=== PATIENT | male | born 1990 | race Caucasian/White ===

== ENCOUNTER 2019-08-25 08:40 | Outpatient (CLI) | payer OTHER, SELFPAY ==
[2019-08-25 09:09] LABS: Basophils Absolute Auto 0.04 K/mm3 (0.00-0.10); Basophils Percent Auto 0.5 % (0.0-1.0); Eosinophils Absolute Auto 0.02 K/mm3 (0.02-0.50); Eosinophils Percent Auto 0.3 % (1.0-6.0); Hematocrit 46.4 % (40.0-54.0); Hemoglobin 16.7 g/dL (14.0-18.0); Immature Granulocyte Absolute 0.01 K/mm3 (0.00-0.00); Immature Granulocyte Percent A 0.1 % (0.0-0.0); Lymphocytes Absolute Auto 1.66 K/mm3 (1.10-4.50); Lymphocytes Percent Auto 22.6 % (18.0-42.0); Mean Corpuscular Hemoglobin 31.5 pg (27.0-31.0); Mean Corpuscular Volume 87.4 fL (78.0-102.0); Mean Platelet Volume 10.4 fl (8.7-11.0); Monocytes Absolute Auto 0.76 K/mm3 (0.10-0.90); Monocytes Percent Auto 10.3 % (2.0-11.0); Neutrophils Absolute Auto 4.9 K/mm3 (1.7-7.2); Neutrophils Percent Auto 66.2 % (50.0-70.0); Platelet Count Result 255 K/mm3 (150-420); Red Blood Count 5.31 M/mm3 (4.70-6.10); Red Cell Distribution Width 11.5 % (11.6-14.4); White Blood Count 7.4 K/mm3 (4.8-10.8)
[2019-08-25 09:10] LABS: Add Urine Microscopic? YES; Appearance Urine Clear (Clear); Bilirubin Urine Negative (Negative); Blood Urine Negative (Negative); Color Urine Yellow (Yellow); Glucose Urine UA 1+ (Negative); Ketones Urine Negative (Negative); Leukocyte Esterase Ur Negative (Negative); Nitrate Urine Negative (Negative); Protein Urine 1+ (Negative); Urobilinogen Urine 0.2 mg/dL (0.2-1.0); pH Urine 6.5 (5.0-8.0)
[2019-08-25 09:21] LABS: Bacteria Urine 1+ /hpf; Mucus Urine Moderate /lpf; RBC Urine 0-2 /hpf (0-2); Squamous Epithelial Cell Urine None seen /hpf (Few)
[2019-08-25 09:49] LABS: Alanine Aminotransferase 41 U/L (16-63); Albumin Level 4.7 g/dL (3.4-5.0); Alkaline Phosphatase 85 U/L (46-116); Anion Gap 15.7 mmol/L (7-16); Aspartate Amino Transferase 26 U/L (15-37); Bilirubin,Total 0.6 mg/dL (0.00-1.00); Blood Urea Nitrogen 16 mg/dL (7-18); Calcium 9.7 mg/dL (8.5-10.1); Carbon Dioxide 26 mmol/L (21-32); Chloride 101 mmol/L (98-108); Cholesterol 220 mg/dL (0-200); Estimated Glomerular Filt Rate > 60; Glucose 239 mg/dL (70-99); HDL Direct 31 mg/dL (40-60); LDL Cholesterol Calculated 135 mg/dL (<130); Osmolality Calculated 295 mOsm/kg (285-295); Potassium 4.7 mmol/L (3.5-5.1); Sodium 138 mmol/L (136-145); Total Protein 7.9 g/dL (6.4-8.2); Triglycerides 272 mg/dL (0-150)
== END 2019-08-25 08:41 | disposition home or self-care (01) ==
LOC: CHSLAB 08:45
PROVIDERS: PCP Internal Medicine; Visit Provider Internal Medicine
DX: E78.5 Hyperlipidemia, unspecified (principal); E11.9 Type 2 diabetes mellitus without complications; N17.9 Acute kidney failure, unspecified; F32.2 Major depressive disorder, single episode, severe without psychotic features; Z13.89 Encounter for screening for other disorder
CPT/HCPCS: 36415; 80053; 80061; 80307; 81001; 85025

== ENCOUNTER 2019-10-28 00:51 | Emergency (ER) | payer OTHER, SELFPAY ==
[2019-10-28] VITALS (9 sets, daily range): BP systolic 105–132; BP diastolic 57–78; PULSE 72–87; RESP 16–20; TEMP 36.6; O2SAT 95–99
--- NOTE | ~2019-10-28 | CT_ITS ---
EXAMINATION: CT brain wo con DATE: 10/28/2019 01:34 INDICATION: Suicidal ideation. Intoxication. TECHNIQUE: Computed tomography (CT) of the head was performed without intravenous contrast. The mA wa s adjusted according to patient size. Iterative reconstruction technique was employed. The dose-lengt h product was 681.00 mGy-cm. COMPARISON: None FINDINGS: There is no intracranial hemorrhage, acute infarction, or abnormal intracranial mass lesion . The ventricles are normal in size. There are fracture deformities of the nasal bones. The mastoid a ir cells are normal. The orbits are normal. There is mild mucosal thickening in the ethmoid and sphen oid sinuses. IMPRESSION: 1. Normal brain. Reviewed, dictated and finalized at location A. IMPRESSION: 1. Normal brain.
--- NOTE | 2019-10-28 01:06 | ECG_ITS ---
Measurements Intervals [place] Rate: 80 P: 5 NV: 224 QRS: 27 QRSD: 116 T: -23 QT: 398 QTc: 461 Interpretive Statements SINUS RHYTHM WITH FIRST DEGREE AV BLOCK MODERATE INTRAVENTRICULAR CONDUCTION DELAY ST ELEVATION IN ANT/LAT LEADS- CONSIDER PERICARDITIS, EARLY REPOLARIZATION BASELINE WANDER- II, III, AVF, V2 ABNORMAL ECG Electronically Signed On 10-28-2019 7:22:49 CDT by Oscar Conde D.O.
--- NOTE | 2019-10-28 01:06 | ED.PSYCH ---
HPI - Psych General Chief Complaint: Psychiatric Symptoms Stated Complaint: suicidal Time Seen by Provider: 10/28/19 01:06 Source: patient Mode of arrival: ambulatory Limitations: no limitations History of Present Illness HPI Narrative: 29-year-old man brought in to the emergency department by EMS after he was brought down from a water tower where he planned to commit suicide. Patient states that he is tired of it all and would have committed suicide but he wanted to talk to his family first. States that he drank alcohol as recently as 30 minutes ago and approximately dinnertime (6 or 7 hours ago) he took about 8 Klonopin. He denies seizure and recent head injury. MD complaint: suicidal ideation Onset (ago): hour(s) Duration: constant History of same: Yes Relieving factors: none Exacerbating factors: alcohol Context: recent alcohol abuse Associated psychiatric symptoms: depression and suicidal ideation Treatments prior to arrival: none If self harm: admits thoughts of self harm, has plan, has acted on plan and self-inflicted trauma Related Data Home Medications Medication Instructions Recorded Confirmed acamprosate 333 mg PO DAILY 10/28/19 10/28/19 atorvastatin 10 mg PO DAILY 10/28/19 10/28/19 buspirone 30 mg PO DAILY 10/28/19 10/28/19 clonazepam 1 mg PO DAILY 10/28/19 10/28/19 glyburide-metformin 1 tablet PO BID 10/28/19 10/28/19 metoprolol tartrate 100 mg PO DAILY 10/28/19 10/28/19 mirtazapine 30 mg PO HS 10/28/19 10/28/19 venlafaxine 150 mg PO DAILY 10/28/19 10/28/19 Allergies Allergy/AdvReac Type Severity Reaction Status Date / Time No Known Allergies Allergy Verified 10/28/19 01:16 Review of Systems Constitutional: Constitutional: Denies chills, Denies fever(s) and Denies weakness Eyes: Eyes: Denies change in vision and Denies photophobia ENT: Denies dysphagia, Denies nasal congestion and Denies sore throat Cardiovascular: Cardiovascular: Denies chest pain and Denies radiating jaw, neck or arm pain Respiratory: Respiratory: Denies cough, Denies dyspnea and Denies wheezing Gastrointestinal: Gastrointestinal: Denies abdominal pain, Denies diarrhea, Denies nausea and Denies vomiting Neurologic: Denies vertigo, Denies dizziness, Denies syncope and Reports headache(s) Psychiatric: Psychiatric: Reports as per HPI, Reports depression and Reports suicidal ideation Hematologic/Lymphatic: Hematologic/Lymphatic: Denies easy bleeding and Denies easy bruising Allergic/Immunologic: Allergic/Immunologic: Denies tongue swelling and Denies wheezing COUNTS INCLUDE 234 BEDS AT THE [facility] Past Medical History Medical History (Updated 10/28/19 @ 02:25 by John Mosquera MD) Depression Hypertension Suicidal ideation Social History Social History (Updated 10/28/19 @ 01:43 by John Mosquera MD) Smoking status: Current every day smoker Tobacco type: cigarettes Alcohol intake: current Substance use: former Substance use type: heroin and methamphetamine Living arrangements: with family Exam Const: General: healthy appearing, no acute distress and alert Orientation/consciousness: patient oriented x3 HENMT: Ears: external ears normal, TM's normal bilaterally and EAC's normal Mouth: Yes Normal oral and palatal mucosa present Throat: posterior oropharynx normal and uvula midline Eyes: Conjunctivae: conjunctivae normal Pupils: Equal, round and reactive pupils present EOM: EOMs intact bilaterally Resp: Effort & Inspection: normal respiratory effort and not labored Auscultation: clear to auscultation bilaterally, no rales, no rhonchi and no wheezes Cardio: Rate: regular rate Rhythm: regular rhythm Heart sounds: no murmurs GI: GI Palp: Yes Soft to palpation, No Tenderness to palpation present (GI), No Guarding due to palpation present (GI) and No Rigid due to palpation Skin: General skin exam: normal color, no jaundice and no pallor Rashes: no rashes Neuro: General: patient oriented x3, moves all extremities, no
[2019-10-28 01:49] LABS: Add Urine Microscopic? NO; Appearance Urine Clear (Clear); Bilirubin Urine Negative (Negative); Blood Urine Negative (Negative); Color Urine Yellow (Yellow); Glucose Urine UA Negative (Negative); Ketones Urine Negative (Negative); Leukocyte Esterase Ur Negative LEU/UL (Negative); Nitrate Urine Negative (Negative); Protein Urine Negative (Negative); Specific Grav Ur <= 1.005 (1.010-1.020); Urobilinogen Urine 0.2 mg/dL (0.2-1.0); pH Urine 5.5 (5.0-8.0)
[2019-10-28 01:51] LABS: Basophils Absolute Auto 0.04 K/mm3 (0.00-0.10); Basophils Percent Auto 0.5 % (0.0-1.0); Eosinophils Absolute Auto 0.08 K/mm3 (0.02-0.50); Hematocrit 47.5 % (40.0-54.0); Hemoglobin 16.5 g/dL (14.0-18.0); Immature Granulocyte Absolute 0.03 K/mm3 (0.00-0.00); Immature Granulocyte Percent A 0.4 % (0.0-0.0); Lymphocytes Percent Auto 35.8 % (18.0-42.0); Mean Corpuscular HGB Conc 34.7 g/dL (32.0-36.0); Mean Corpuscular Hemoglobin 29.7 pg (27.0-31.0); Mean Corpuscular Volume 85.6 fL (78.0-102.0); Mean Platelet Volume 10.3 fl (8.7-11.0); Monocytes Absolute Auto 0.79 K/mm3 (0.10-0.90); Monocytes Percent Auto 10.1 % (2.0-11.0); Neutrophils Absolute Auto 4.1 K/mm3 (1.7-7.2); Neutrophils Percent Auto 52.2 % (50.0-70.0); Platelet Count Result 247 K/mm3 (150-420); Red Blood Count 5.55 M/mm3 (4.70-6.10); Red Cell Distribution Width 10.9 % (11.6-14.4); White Blood Count 7.8 K/mm3 (4.8-10.8)
[2019-10-28 01:57] LABS: Amphetamine Screen Urine Negative (Negative); Barbiturate Screen Urine Negative (Negative); Benzodiazepines Screen Urine Negative (Negative); Cannabinoid Screen Urine Negative (Negative); Cocaine Screen Urine Negative (Negative); Methadone Screen Urine Negative (Negative); Opiate Screen Urine Negative (Negative); Phencyclidine Screen Urine Negative (Negative)
[2019-10-28 02:09] LABS: Alanine Aminotransferase 41 U/L (16-63); Alkaline Phosphatase 84 U/L (46-116); Anion Gap 19.2 mmol/L (7-16); Aspartate Amino Transferase 23 U/L (15-37); Bilirubin,Total 0.3 mg/dL (0.00-1.00); Blood Urea Nitrogen 15 mg/dL (7-18); Calcium 9.4 mg/dL (8.5-10.1); Carbon Dioxide 24 mmol/L (21-32); Chloride 101 mmol/L (98-108); Estimated CRCL calculation 155 ml/min; Estimated Glomerular Filt Rate > 60; Ethanol 124 mg/dL (0-6); Glucose 223 mg/dL (70-99); Osmolality Calculated 299 mOsm/kg (285-295); Potassium 3.2 mmol/L (3.5-5.1); Salicylate 2.8 mg/dL (2.8-20.0); Sodium 141 mmol/L (136-145); Thyroid Stimulating Hormone 4.01 uIU/mL (0.36-3.74); Total Protein 7.6 g/dL (6.4-8.2)
[2019-10-28 02:10] LABS: Acetaminophen 0 ug/mL (10-30)
--- NOTE | 2019-10-28 02:28 | PC.NURSE ---
ERP to place pt. in ED hold status until BAL is WNL, called floor for bed assignment to place pt. in hold room until mental health can evaluate. Pt. has sitter at bedside.
--- NOTE | 2019-10-28 05:58 | PC.NURSE ---
0300 Pt. observed, close obs. in ER Rm 1, sitter protocol initiated at bedside, VSS. pt. sleeping. 0400 Pt. sleeping, no changes. 0500 Pt. continues to sleep. VSS, no changes. 0600 Pt. sleeping, no changes, VSS.
--- NOTE | 2019-10-28 07:41 | PC.NURSE ---
Pt. awake when spoken to and answers questions appropriately. Lab here to draw BAL. Pt. resting, VSS.
[2019-10-28 08:00] LABS: Ethanol 8 mg/dL (0-6)
[2019-10-28] MEDS: POTASSIUM CHLORIDE 20 MEQ PACKET (FOR LIQUID) 40 MEQ PO (08:04)
--- NOTE | 2019-10-28 08:06 | PC.NURSE ---
Pt. alert when awakened, sipping on water and meds given. Pt. cooperative and BAL WNL at this time, order to call for mental health for eval.
--- NOTE | 2019-10-28 09:42 | PC.NURSE ---
Pt. sleeping, VSS, awaiting mental health for evaluation.
--- NOTE | 2019-10-28 10:21 | PC.NURSE ---
Lana, counselor from [facility] here for ptJohnson beltran.
--- NOTE | 2019-10-28 10:57 | PC.NURSE ---
Report given to Karlene Bryan
--- NOTE | 2019-10-28 12:40 | PC.NURSE ---
AWAITING CALL BACK FROM [facility] IN [place].
[2019-10-28 13:03] LABS: Glucose Point of Care 371 (65-105)
[2019-10-28] MEDS: metFORMIN HCL 500 MG TABLET PO (13:31)
[2019-10-28] MEDS: glyBURIDE 5 MG TABLET PO (13:32)
--- NOTE | 2019-10-28 15:20 | PC.NURSE ---
No change in pt status. [facility] [place] They will accept the patient after 1800.
[2019-10-28 15:39] LABS: Glucose Point of Care 240 (65-105)
--- NOTE | 2019-10-28 16:06 | PC.NURSE ---
Pt finished meal tray. [facility] contacted for transfer.
== END 2019-10-28 16:49 ==
PROVIDERS: Emergency Provider Emergency Medicine; PCP Internal Medicine
DX: R45.851 Suicidal ideations (principal); F10.920 Alcohol use, unspecified with intoxication, uncomplicated; F17.200 Nicotine dependence, unspecified, uncomplicated
CPT/HCPCS: 36415; 70450; 80053; 80307; 81003; 84443; 85025; 93005; 96365; 96366; 99285; A9270; J3411; J3475; J7030

== ENCOUNTER 2021-11-07 18:38 | Emergency (ER) | payer OTHER, SELFPAY ==
[2021-11-07 19:08] VITALS: BP 120/69; PULSE 89; RESP 16; TEMP 36.8; O2SAT 100
[2021-11-07 19:26] LABS: Basophils Percent Auto 0.5 % (0.2-1.2); Eosinophils Absolute Auto 0.1 K/mm3 (0-0.3); Eosinophils Percent Auto 1.9 % (0-4.4); Hematocrit 43.9 % (42.0-52.0); Hemoglobin 15.1 g/dL (14.0-18.0); Immature Granulocyte Absolute 0.01 K/mm3 (0.00-0.031); Immature Granulocyte Percent A 0.2 % (0-0.5); Lymphocytes Percent Auto 29.7 % (18.3-44.2); Mean Corpuscular HGB Conc 34.4 g/dl (32-36); Mean Corpuscular Hemoglobin 31.1 pg (26-34); Mean Corpuscular Volume 90.5 fl (80-100); Mean Platelet Volume 10.1 fl (7.4-10.4); Monocytes Absolute Auto 0.7 K/mm3 (0.1-0.6); Monocytes Percent Auto 11.4 % (2.6-8.5); Neutrophils Absolute Auto 3.6 K/mm3 (1.3-6.7); Neutrophils Percent Auto 56.3 % (45.5-73.1); Platelet Count Result 221 k/mm3 (150-375); Red Blood Count 4.85 M/mm3 (4.6-6.20); Red Cell Distribution Width 12.7 % (11.5-14.5); White Blood Count 6.4 K/mm3 (4.5-10.0)
[2021-11-07 19:31] LABS: Add Urine Microscopic? YES; Appearance Urine Clear (Clear); Bilirubin Urine Negative (Negative); Blood Urine Negative (Negative); Color Urine Yellow (Yellow); Glucose Urine UA 3+ mg/dL (Negative); Ketones Urine Negative (Negative); Leukocyte Esterase Ur Negative LEU/UL (Negative); Nitrate Urine Negative (Negative); Protein Urine Negative (Negative); Specific Grav Ur <= 1.005 (1.001-1.035); Urobilinogen Urine 0.2 mg/dL (<2.0); pH Urine 5.5 (5.0-9.0)
[2021-11-07 19:38] LABS: Ethanol 250 mg/dL (<10)
[2021-11-07 19:39] LABS: Alanine Aminotransferase 22 U/L (6-50); Albumin Level 4.5 g/dL (3.5-5.1); Alkaline Phosphatase 74 U/L (38-126); Anion Gap 11 mmol/L (8-16); Aspartate Amino Transferase 29 U/L (17-59); Bilirubin,Total 0.4 mg/dL (0.2-1.3); Blood Urea Nitrogen 12 mg/dL (9-20); Calcium 8.6 mg/dL (8.4-10.2); Carbon Dioxide 22 mmol/L (22-30); Chloride 107 mmol/L (98-107); Estimated Glomerular Filt Rate > 60; Glucose 217 mg/dL (65-110); Potassium 3.5 mmol/L (3.4-5.0); Sodium 140 mmol/L (137-145)
[2021-11-07 19:47] LABS: Amphetamine Screen Urine Negative (Negative); Barbiturate Screen Urine Negative (Negative); Benzodiazepines Screen Urine Negative (Negative); Cannabinoid Screen Urine Negative (Negative); Cocaine Screen Urine Negative (Negative); Methadone Screen Urine Negative (Negative); Opiate Screen Urine Negative (Negative); Phencyclidine Screen Urine Negative (Negative)
[2021-11-07 19:59] LABS: RBC Urine 0-2 /hpf (0-2); WBC Urine 0-3 /hpf
--- NOTE | 2021-11-07 20:00 | ED.PSYCH ---
HPI - Psych General Chief Complaint: Psychiatric Symptoms Stated Complaint: suicidal comments to pd etoh on board Time Seen by Provider: 11/07/21 19:20 History of Present Illness HPI Narrative: Patient is a 31-year-old male complaining of suicidal ideation. Patient states that he has been having problems with his drinking, my life is a mess . Patient admits to drinking today. Patient states that he does not have any plans but told the nurse early plan to OD on pills. Patient denies any homicidal ideation. Related Data Home Medications Medication Instructions Recorded Confirmed acamprosate 333 mg tablet,delayed 333 mg PO DAILY 10/28/19 10/28/19 release atorvastatin 10 mg tablet 10 mg PO DAILY 10/28/19 10/28/19 buspirone 30 mg tablet 30 mg PO DAILY 10/28/19 10/28/19 clonazepam 1 mg tablet 1 mg PO DAILY 10/28/19 10/28/19 glyburide 5 mg-metformin 500 mg 1 tablet PO BID 10/28/19 10/28/19 tablet metoprolol tartrate 100 mg tablet 100 mg PO DAILY 10/28/19 10/28/19 mirtazapine 30 mg tablet 30 mg PO HS 10/28/19 10/28/19 venlafaxine 150 mg 150 mg PO DAILY 10/28/19 10/28/19 capsule,extended release 24 hr Allergies Allergy/AdvReac Type Severity Reaction Status Date / Time No Known Allergies Allergy Verified 10/28/19 01:16 [facility] Past Medical History Medical History Depression Hypertension Suicidal ideation Social History Social History Smoking status: Current every day smoker Tobacco type: cigarettes Alcohol intake: current Substance use: former Substance use type: heroin and methamphetamine Exam Const: General: cooperative, healthy appearing, comfortable, no acute distress, well developed, alert and awake; No confusion Orientation/consciousness: oriented to person, oriented to place, oriented to time, patient oriented x3 and No confusion Limitations: no limitations HENMT: Head: normal to inspection, normocephalic and atraumatic Ears: hearing grossly normal bilaterally, TM normal on the right and TM normal on the left General nose exam: Normal external nose present, Normal nares present and No nasal discharge present Face and sinus: normal facial exam Mouth: Yes Normal oral and palatal mucosa present, Yes lip normal, Yes tongue normal and Yes oropharynx normal Throat: posterior oropharynx normal, tonsils normal and uvula midline Eyes: General: appearance normal, both eyes and all related structures Pupils: Equal, round and reactive pupils present EOM: EOMs intact bilaterally Neck: Neck: normal visual inspection, full ROM, no lymphadenopathy and no meningeal signs Chest: Chest palpation & inspection: normal inspection of the chest Resp: Effort & Inspection: normal respiratory effort, able to speak in complete sentences, no respiratory distress and not tachypneic Auscultation: clear to auscultation bilaterally, no crackles, no rales, no rhonchi and no wheezes Cardio: Rate: regular rate Rhythm: regular rhythm GI: Inspection: normal to inspection GI Palp: No abdominal tenderness, Yes Soft to palpation, No Tenderness to palpation present (GI), No Guarding due to palpation present (GI), No Rigid due to palpation and No Rebound tenderness present Auscultation: normal bowel sounds : General: Yes no CVA tenderness Back/Spine/Pelvis: Back: no CVA tenderness Skin: General skin exam: normal color, no rashes or lesions noted, elasticity normal and turgor normal Neuro: General: oriented to person, oriented to place, oriented to time, patient oriented x3, tone normal, moves all extremities, Normal light touch and pain sensation, no meningeal signs, no focal motor deficits, CN's II-XI intact bilaterally and No confusion Cranial nerves: Yes Equal, round and reactive pupils present Speech: No Abnormal speech present Sensory Exam: No Sensory deficit (Neuro) Extrem: General: normal to inspection
[2021-11-07 20:16] LABS: Thyroid Stimulating Hormone 0.885 uIU/mL (0.465-4.680)
--- NOTE | 2021-11-07 20:52 | PC.NURSE ---
PT SEEN AMBULATING OUT EMS DOORS, RN, PCT AND SECURITY ATTEMPTING TO GET PATIENT BACK INTO ROOM. [facility] RITTER NOTIFIED AT THIS TIME. ERP DR JONES NOTIFIED. PATIENT DID HAVE AN IV IN PLACE AT TIME OF ELOPEMENT .
--- NOTE | 2021-11-07 20:55 | PC.NURSE ---
PT OBSERVED BY PCT RIPPING IV OUT HE WALKED ACROSS THE PARKING LOT.
--- NOTE | 2021-11-07 21:12 | PC.NURSE ---
BROUGHT BACK TO ED BY [facility] RITTER
--- NOTE | 2021-11-07 21:12 | PC.NURSE ---
2049 PT WALED OUT OF ED, POLICE NOTIFIED
--- NOTE | 2021-11-07 21:13 | PC.NURSE ---
PLACED IN ROOM 15 AND SITTER AT BEDSIDE DUE TO PT BEING ELOPEMENT RISK, BELONGINGS SECURED OUTSIDE OF ROOM
--- NOTE | 2021-11-07 21:13 | PC.NURSE ---
pt returned to room 15 via [facility] at this time.
[2021-11-07] MEDS: NICOTINE (*PBKC) 21 MG PATCH 1 PATCH TRANSDERM (21:37)
--- NOTE | 2021-11-07 21:37 | PC.NURSE ---
ABRASION TO LEFT KNEE, SIDE OF LEFT HAND, LEFT FOREARM ABRASION. PT REPORTS THIS HAPPENED WHEN THE POLICE DETAINED HIM TO RETURN HIM TO ED
--- NOTE | 2021-11-07 21:39 | PC.NURSE ---
WOUNDS CLEANSED WITH NS THEN TRIPPLE ANTIBIOTIC APPLIED. XEROFORM AND COBAN APPLIED TO LEFT
--- NOTE | 2021-11-07 21:41 | PC.NURSE ---
XEROFORM AND COBAN APPLIED TO LEFT 5TH DIGIT
--- NOTE | 2021-11-07 22:24 | PC.NURSE ---
[facility] erp dr qureshi for ativan 1mg po .
[2021-11-07] MEDS: LORazepam (*CRX) 1 MG TABLET PO (22:27)
--- NOTE | 2021-11-07 22:27 | PC.NURSE ---
lorazepam given for c/o restlessness
[2021-11-08 04:30] LABS: Ethanol < 10 mg/dL (<10)
--- NOTE | 2021-11-08 05:05 | PC.NURSE ---
pt medically cleared at this time
[2021-11-08 05:20] VITALS: BP 137/94; PULSE 83; RESP 16; O2SAT 100
[2021-11-08 06:26] LABS: SARS-CoV-2 RNA PCR Negative
--- NOTE | 2021-11-08 07:12 | PC.NURSE ---
REPORT TO CHRISTINE RANDHAWA
[2021-11-08 09:03] VITALS: BP 122/84; PULSE 86; RESP 17; O2SAT 99
--- NOTE | 2021-11-08 11:04 | PC.NURSE ---
[facility] accepted BLS transfer to [facility] ETA 1hr [facility] - waiting Supp Approval Trip #[id number]
[2021-11-08 12:35] VITALS: BP 124/86; PULSE 96; RESP 14; O2SAT 98
== END 2021-11-08 12:38 ==
PROVIDERS: Emergency Medicine; Emergency Provider Emergency Medicine; PCP Internal Medicine
DX: R45.851 Suicidal ideations (principal); F10.129 Alcohol abuse with intoxication, unspecified; Y90.8 Blood alcohol level of 240 mg/100 ml or more; Z20.822 Contact with and (suspected) exposure to COVID-19; I10 Essential (primary) hypertension; F32.A Depression, unspecified; F17.210 Nicotine dependence, cigarettes, uncomplicated
CPT/HCPCS: 36415; 80053; 80307; 81001; 84443; 85025; 99285; A9270; C9803; U0003; U0005